=== PATIENT | female | born 1980 | race Two or more races ===

== ENCOUNTER 2023-07-21 11:17 | Emergency (ER) | payer OTHER ==
[~2023-07-21] VITALS: Ht 167.6 cm; Wt 70.3 kg
== END 2023-07-21 14:05 | disposition home or self-care (01) ==
LOC: ER 11:17
DX: S09.8XXA Other specified injuries of head, initial encounter (principal); W16.012A Fall into swimming pool striking water surface causing other injury, initial encounter; Y93.89 Activity, other specified; Y92.59 Other trade areas as the place of occurrence of the external cause